=== PATIENT | male | born 1995 | race Caucasian/White ===

== ENCOUNTER 2018-07-17 10:06 | Emergency (ER) | payer OTHER ==
[2018-07-17 10:13] VITALS: BP 146/40
[2018-07-17] MEDS ORDERED: DEXAMETHASONE 10 MG/ML VIAL PO STA (11:11)
--- NOTE | 2018-07-17 11:13 | ED Physician Documentation ---
PD HPI BACK PAIN - Stated complaint Stated Complaint: LOWER BACK PX - Chief complaint Chief Complaint: Back Pain - History obtained from History obtained from: Patient - History of Present Illness Timing - onset: Yesterday Timing - duration: Days (1) Timing - details: Abrupt onset, Still present Location: Lower, Right, Left Quality: Pain, Spasm, Sharp, Similar to prior episodes Associated symptoms: Incontinent of stool. No: Fever, Weakness, Numbness, Incontinent of urine, Unable to urinate, Hematuria Improves with: Rest, Ice, Position, Meds Worsened by: Movement, Lifting, Twisting, Palpation Contributing factors: Lifting Similar symptoms before: Diagnosis (lumbar strain) Recently seen: Not recently seen - Additional information Additional information: Previously healthy 22-year-old male who has had a prior back injury was doing some weightlifting yesterday and he got up to 405 pounds in a lift and this hurt his back. He felt that at the time and he felt that he would be having some issue with his back for a while. He woke up this morning feeling well and he was surprised by this went to work and after standing up and sitting down several times he has intractable pain. He states the pain is worse if he is sitting down he prefers to stand and he denies any numbness to the perineum or c hange in his bowel or bladder. Review of Systems Constitutional: denies: Fever Eyes: denies: Decreased vision Ears: denies: Ear pain Nose: denies: Congestion Throat: denies: Sore throat Respiratory: denies: Cough GI: denies: Vomiting : denies: Dysuria Skin: denies: Rash Musculoskeletal: reports: Back pain, Extremity pain. denies: Neck pain PD PAST MEDICAL HISTORY - Past Medical History Past Medical History: No - Past Surgical History Past Surgical History: No - Present Medications Home Medications: Ambulatory Orders Medication Instructions Recorded Confirmed Cyclobenzaprine [Flexeril] 10 mg PO TID PRN #20 tablet 07/17/18 - Allergies Allergies/Adverse Reactions: Allergies Allergy/AdvReac Type Severity Reaction Status Date / Time No Known Drug Allergies Allergy Verified 07/17/18 10:13 - Social History Does the pt smoke?: No Smoking Status: Never smoker PD ED PE NORMAL - Vitals Vital signs reviewed: Yes (hypertenisve systolic ) - General General: Alert and oriented X 3, No acute distress, Well developed/nourished - HEENT HEENT: Atraumatic, PERRL - Respiratory Respiratory: No respiratory distress - Back Back: No CVA TTP, No spinal TTP, Other (paraspinous muscle spasm is present in the lower lumbar spine. ) - Derm Derm: Normal color, Warm and dry, No rash - Extremities Extremities: No deformity, No edema - Neuro Neuro: Alert and oriented X 3, calf skinner 2-12 intact, No motor deficit, No sensory deficit, Normal speech Eye Opening: Spontaneous Motor: Obeys Commands Verbal: Oriented GCS Score: 15 - Psych Psych: Normal mood, Normal affect Results - Vitals Vitals: Vital Signs - 24 hr 07/17/18 10:11 Temperature 36.1 C L Heart Rate 60 Respiratory 15 Rate Blood Pressure 146/40 H O2 Saturation 99 Oxygen O2 Source Room air PD MEDICAL DECISION MAKING - ED course Complexity details: considered differential, d/w patient ED course: 22-year-old male with acute lumbar strain has sciatic symptoms now he is administered dexamethasone 10 mg orally and we will place him on some Flexeril. Departure - Departure Disposition: 01 Home, Self Care Clinical Impression: Sciatica Qualifiers: Laterality: bilateral Qualified Code(s): M54.31 - Sciatica, right side; M54.32 - Sciatica, left side Condition: Stable Instructions: ED Sciatica Follow-Up: ASHLEY Claudio [Provider Group] Prescriptions: Cyclobenzaprine [Flexeril] 10 mg PO TID PRN #20 tablet PRN Reason: Spasms Forms: Activity restrictions
[2018-07-17] MEDS ORDERED: CHERRY SYRUP 10 ML UDC PO ONE (11:18)
== END 2018-07-17 11:21 | disposition home or self-care (01) ==
LOC: ED 10:06
DX: M54.32 Sciatica, left side (principal); S39.012A Strain of muscle, fascia and tendon of lower back, initial encounter; Y93.59 Activity, other involving other sports and athletics played individually
CPT/HCPCS: 99283; A9270

== ENCOUNTER 2019-05-11 15:14 | Emergency (ER) | payer OTHER ==
--- NOTE | 2019-05-11 16:46 | ED Physician Documentation ---
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 He states that he had some initial pain in his left thumb this is improved he had some pain across his back is also improved he had some difficulty breathing temporarily that is reduced as well. He is not otherwise been ill. He believes the voltage was 120 and the hertz was 400 instead of the usual 60. Review of Systems Constitutional: denies: Fever, Chills, Myalgias, Fatigue Ears: denies: Ear pain Nose: denies: Congestion Respiratory: denies: Cough GI: denies: Vomiting PD PAST MEDICAL HISTORY - Past Surgical History Past Surgical History: No - Present Medications Home Medications: Ambulatory Orders Medication Instructions Recorded Confirmed Cyclobenzaprine [Flexeril] 10 mg PO TID PRN #20 tablet 07/17/18 - Allergies Allergies/Adverse Reactions: Allergies Allergy/AdvReac Type Severity Reaction Status Date / Time No Known Drug Allergies Allergy Verified 05/11/19 15:36 - Social History Does the pt smoke?: No Smoking Status: Never smoker PD ED PE NORMAL - Vitals Vital signs reviewed: Yes (hypertension ) - General General: Alert and oriented X 3, No acute distress, Well developed/nourished - HEENT HEENT: Atraumatic, PERRL, EOMI - Neck Neck: Supple, no meningeal sign, No bony TTP - Cardiac Cardiac: RRR, No murmur - Respiratory Respiratory: No respiratory distress, Clear bilaterally - Abdomen Abdomen: Soft, Non tender - Back Back: No CVA TTP, No spinal TTP - Derm Derm: Normal color, Warm and dry, No rash - Extremities Extremities: No deformity, No edema - Neuro Neuro: Alert and oriented X 3, production bow maker 2-12 intact, No motor deficit, No sensory deficit, Normal speech Eye Opening: Spontaneous Motor: Obeys Commands Verbal: Oriented GCS Score: 15 - Psych Psych: Normal mood, Normal affect Results - Vitals Vitals: Vital Signs - 24 hr 05/11/19 15:33 Temperature 36.7 C Heart Rate 52 L Respiratory 14 Rate Blood Pressure 163/53 H O2 Saturation 99 Oxygen O2 Source Room air - EKG (time done) 1627 Rate: Rate (enter#) (54) Rhythm: NSR Ischemia: Non specific changes (borderline prolonged ND interval) Computer interpretation: Agree with computer PD MEDICAL DECISION MAKING - ED course Complexity details: reviewed results, re-evaluated patient, considered differential, d/w patient, d/w family ED course: 23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 Departure - Departure Disposition: 01 Home, Self Care Clinical Impression: Electrical injury in adult Condition: Stable Instructions: Shock Electrical First Aid Follow-Up: GRETCHEN MAJOR MD [Primary Care Provider] -
[2019-05-11 16:54] VITALS: BP 136/70
== END 2019-05-11 16:53 | disposition home or self-care (01) ==
LOC: ED 15:14
DX: T75.4XXA Electrocution, initial encounter (principal); W86.8XXA Exposure to other electric current, initial encounter; Y93.89 Activity, other specified; Y92.138 Other place on military base as the place of occurrence of the external cause; Y99.1 Military activity
CPT/HCPCS: 93005; 99282; 99283